=== PATIENT | male | born 1985 | race Hispanic/Latino ===

== ENCOUNTER 2017-08-17 10:49 | Emergency (ER) | payer SELFPAY ==
[2017-08-17] MEDS ORDERED: Acetaminophen 500 MG TAB ONE (12:06)
[2017-08-17 12:31] LABS: #Lymphocytes 0.5 thou/uL (1.20-3.40); #Monocytes 0.7 thou/uL (0.11-0.59); #Neutrophils 5.3 thou/uL (1.40-6.50); %Basophils 0.1 % (0.0-1.0); %Eosinophils 0.6 % (0.0-10.0); %Lymphocytes 7.3 % (21.0-51.0); %Monocytes 11.3 % (0.0-10.0); Hematocrit 48.4 % (42.0-52.0); Mean Platelet Volume 9.8 fL (7.4-10.4); Red Blood Cell (RBC) Count 5.25 mill/uL (4.70-6.10); White Blood Cell (WBC) Count 6.6 thou/uL (4.8-10.8)
--- NOTE | 2017-08-17 12:40 | RAD ---
AP VIEW CHEST: Date: 08/17/17 HISTORY: Cough. FINDINGS: Comparison made to previous exam from 10/05/16. AP view of chest demonstrates the lungs to be well aerated. No evidence of active intrathoracic disea se seen. No evidence of effusions, pneumonia, or pneumothorax seen. IMPRESSION: Unremarkable AP view of chest. POS: [id number]
[2017-08-17 12:52] LABS: Anion Gap 13 mmol/L (10-20); BUN (Urea Nitrogen) 6 mg/dL (8.9-20.6); Calc. Creatinine Clearance 0 mL/min (70-130); Calcium 9.2 mg/dL (7.8-10.44); Carbon Dioxide 23 mmol/L (22-29); Chloride 104 mmol/L (98-107); Estimated GFR-MDRD Greater than 90
== END 2017-08-17 12:54 | disposition home or self-care (01) ==
LOC: ERS 10:49
DX: J11.1 Influenza due to unidentified influenza virus with other respiratory manifestations (principal); F17.210 Nicotine dependence, cigarettes, uncomplicated
CPT/HCPCS: 36415; 71010; 80048; 85025

== ENCOUNTER 2018-10-07 03:15 | Emergency (ER) | payer SELFPAY ==
[2018-10-07] MEDS ORDERED: Ibuprofen 800 MG TAB ONE (04:03)
== END 2018-10-07 04:08 | disposition home or self-care (01) ==
LOC: ERS 03:15
DX: K02.9 Dental caries, unspecified (principal); F17.210 Nicotine dependence, cigarettes, uncomplicated
CPT/HCPCS: 99282

== ENCOUNTER 2018-12-14 18:54 | Emergency (ER) | payer SELFPAY ==
[2018-12-14] MEDS ORDERED: Cyclobenzaprine 10 MG TAB ONE (19:22)
[2018-12-14] MEDS ORDERED: Ketorolac Tromethamine 60 MG/2 ML VIAL ONE (19:22)
== END 2018-12-14 19:51 | disposition home or self-care (01) ==
LOC: SCSER 18:54
DX: M54.6 Pain in thoracic spine (principal); I10 Essential (primary) hypertension; F17.210 Nicotine dependence, cigarettes, uncomplicated
CPT/HCPCS: 96372; J1885

== ENCOUNTER 2021-02-16 11:22 | Emergency (ER) | payer SELFPAY | END 2021-02-16 14:07 | disposition home or self-care (01) | LOC: ERS 11:22 | DX: L03.113 Cellulitis of right upper limb (principal) | CPT/HCPCS: 99283 ==

== ENCOUNTER 2022-09-30 16:16 | Emergency (ER) | payer SELFPAY ==
[2022-09-30] MEDS ORDERED: Ketorolac Tromethamine 30 MG/ML VIAL ONE (19:19)
== END 2022-09-30 19:39 | disposition home or self-care (01) ==
LOC: ERS 16:16
DX: K04.7 Periapical abscess without sinus (principal); F17.210 Nicotine dependence, cigarettes, uncomplicated
CPT/HCPCS: 96372; 99282; J1885

== ENCOUNTER 2022-12-24 01:25 | Emergency (ER) | payer SELFPAY ==
[2022-12-24] MEDS ORDERED: Carbamide Peroxide 6.5% Otic Drops 15 ml Bottle ONE (01:40)
== END 2022-12-24 02:44 | disposition left against medical advice (07) ==
LOC: ERS 01:25
DX: H61.21 Impacted cerumen, right ear (principal); E66.9 Obesity, unspecified; F17.210 Nicotine dependence, cigarettes, uncomplicated
CPT/HCPCS: 69209

== ENCOUNTER 2024-10-05 09:27 | Inpatient (IN) | payer SELFPAY ==
[2024-10-05] MEDS ORDERED: Iopamidol-370 76% 500 ML MDV (1 ML CHARGE) ONE (10:07)
[2024-10-05 10:28] LABS: Bacteria/HPF None Seen HPF (None Seen); Bilirubin 1+ (Negative); Blood, Urine Trace (Negative); CAUTI Indications for Culture Dysuria,urgency,freq; Glucose, Urine (Dipstick) 30 mg/dL (Negative); Ketone, Urine Trace mg/dL (Negative); Leukocyte 25 Leu/uL (Negative); Nitrite Negative (Negative); Protein, Urine (Dipstick) 300 mg/dL (Neg-Trace); Squamous Epithelial 0-3 HPF (0-3); Urobilinogen 3 mg/dL (Less than 2); pH, Urine 6.5 (5.0-9.0)
[2024-10-05 10:34] LABS: #Basophils 0.04 10x3/uL (0.0-0.2); %Basophils 0.4 % (0.0-1.0); %Eosinophils 1.4 % (0.0-10.0); %Lymphocytes 14.5 % (21.0-51.0); %Monocytes 5.7 % (0.0-10.0); %Neutrophils 77.7 % (42.0-75.0); Hematocrit 51.4 % (42.0-52.0); Hemoglobin 16.8 g/dL (14.0-18.0); Mean Corpuscular HGB CONC 32.7 g/dL (32.0-36.0); Mean Corpuscular Hemoglobin 28.3 pg (27.0-31.0); Mean Corpuscular Volume 86.7 fL (78.0-98.0); Mean Platelet Volume 11.3 fL (7.4-10.4); Platelet Count 193 10x3/uL (130-400); RBC Distribution Width 15.2 % (11.5-14.5); Red Blood Cell (RBC) Count 5.93 mill/uL (4.70-6.10)
[2024-10-05 10:37] LABS: Clarity Cloudy (Clear)
[2024-10-05 10:39] LABS: Urine Culture Reflex No No
[2024-10-05 10:51] LABS: ALT (SGPT) 37 U/L (Less than 45); AST (SGOT) 47 U/L (11-34); Alkaline Phosphatase 90 U/L (40-110); Anion Gap 14 mmol/L (10-20); BUN (Urea Nitrogen) 10 mg/dL (8.9-20.6); Bilirubin, Total 0.9 mg/dL (0.3-1.2); Calc. Creatinine Clearance 0 mL/min (70-130); Calcium 9.3 mg/dL (7.8-10.44); Carbon Dioxide 26 mmol/L (22-29); Chloride 104 mmol/L (98-107); Estimated GFR 91; Globulin 4.1 g/dL (2.4-3.5); Glucose 122 mg/dL (70-105); Lipase 24 U/L (8-78); Potassium 3.7 mmol/L (3.5-5.1); Protein, Total 8.1 g/dL (6.0-8.3); Sodium 140 mmol/L (136-145)
[2024-10-05] MEDS ORDERED: Ketorolac Tromethamine 30 MG (1 mL) VIAL ONE ×2 (10:51→12:20)
[2024-10-05 11:33] LABS: Troponin I 2.196 ng/mL (< 0.028)
[2024-10-05] MEDS ORDERED: Aspirin Chewable 81 MG TAB ONE (12:21)
[2024-10-05] MEDS ORDERED: Labetalol HCl 100 MG/20 ML VIAL ONE (12:21)
[2024-10-05] MEDS ORDERED: Enoxaparin 60 MG (0.6 mL) SYRINGE ONE (13:47)
[2024-10-05] MEDS ORDERED: Enoxaparin 100 MG (1 mL) SYRINGE ONE (13:48)
[2024-10-05] MEDS ORDERED: Nicotine 14 MG PATCH TD PRN (15:18)
[2024-10-05] MEDS ORDERED: Cyclobenzaprine 10 MG TAB PO PRN (15:19)
[2024-10-05] MEDS ORDERED: Ondansetron ODT 4 MG TAB PO PRN (15:20)
[2024-10-05] MEDS ORDERED: Electrolyte Replacement Protocol FS SCH (15:20)
[2024-10-05] MEDS ORDERED: Ondansetron PF 4 MG/2 ML Vial IVP PRN (15:20)
[2024-10-05] MEDS ORDERED: Senokot S 8.6-50 MG TAB PO PRN (15:20)
[2024-10-05] MEDS ORDERED: Calcium Carbonate 500 MG ChewTAB PO PRN (15:20)
[2024-10-05] MEDS ORDERED: Nitroglycerin 0.4 MG TAB (25 Tab Bottle) SL PRN (15:25)
[2024-10-05] MEDS ORDERED: Electrolyte Replacement Protocol FS PRN (15:45)
[2024-10-05 15:58] LABS: Critical Call Chem Troponin I RESULT DECREASING; Troponin I 1.979 ng/mL (< 0.028)
[2024-10-05 16:19] LABS: Hemoglobin A1c 5.5 % (4.0-6.0)
[2024-10-05 17:59] VITALS: BMI 49.1
[2024-10-05] MEDS: NIFEdipine XL 30 MG ER.TAB PO SCH (18:23)
[2024-10-05] MEDS: Carvedilol 6.25 MG TAB PO SCH (18:24)
[2024-10-05] MEDS: Acetaminophen 325 MG TAB PO PRN (18:24)
[2024-10-05] MEDS: Lidocaine 4% Patch TD SCH (18:25)
[2024-10-05] MEDS: Magnesium 2 GM/50 ML(in water) 2 GM in Premix 1 BAG IVPB SCH (18:25)
[2024-10-05 18:33] LABS: Troponin I 2.133 ng/mL (< 0.028)
[2024-10-05] MEDS: cloNIDine 0.1 MG TAB PO PRN (21:53)
[2024-10-05] MEDS: Cyclobenzaprine 10 MG TAB PO SCH (21:54)
[2024-10-05] MEDS: Famotidine 20 MG TAB PO SCH (21:55)
[2024-10-05] MEDS ORDERED: hydrALAZINE 20 MG/ML VIAL SLOW IVP PRN (23:21)
[2024-10-05] MEDS: hydrALAZINE 20 MG/ML VIAL SLOW IVP SCH (23:54)
[2024-10-05] MEDS: Ketorolac Tromethamine 30 MG (1 mL) VIAL IVP SCH (23:55)
[2024-10-06 04:05] LABS: #Basophils 0.04 10x3/uL (0.0-0.2); %Basophils 0.5 % (0.0-1.0); %Eosinophils 2.1 % (0.0-10.0); %Lymphocytes 20.5 % (21.0-51.0); %Monocytes 7.2 % (0.0-10.0); %Neutrophils 69.3 % (42.0-75.0); Hematocrit 48.8 % (42.0-52.0); Hemoglobin 15.9 g/dL (14.0-18.0); Mean Corpuscular HGB CONC 32.6 g/dL (32.0-36.0); Mean Corpuscular Hemoglobin 28.6 pg (27.0-31.0); Mean Corpuscular Volume 87.8 fL (78.0-98.0); Mean Platelet Volume 12.3 fL (7.4-10.4); Platelet Count 172 10x3/uL (130-400); RBC Distribution Width 15.3 % (11.5-14.5); Red Blood Cell (RBC) Count 5.56 mill/uL (4.70-6.10)
[2024-10-06 04:44] LABS: Anion Gap 13 mmol/L (10-20); BUN (Urea Nitrogen) 12 mg/dL (8.9-20.6); Calc. Creatinine Clearance 273 mL/min (70-130); Calcium 8.8 mg/dL (7.8-10.44); Carbon Dioxide 27 mmol/L (22-29); Cardiac Risk 4.3 (Less than 4.5); Chloride 104 mmol/L (98-107); Cholesterol 119 mg/dl (< 200 Desired); Estimated GFR 114; Glucose 125 mg/dL (70-105); HDL Cholesterol 28 mg/dL (>60 Neg Risk); LDL Cholesterol, Calculated 72 mg/dL; Potassium 3.3 mmol/L (3.5-5.1); Sodium 141 mmol/L (136-145); Triglycerides 95 mg/dL (Less than 150)
[2024-10-06] MEDS: Labetalol HCl 100 MG/20 ML VIAL SLOW IVP PRN (05:27)
[2024-10-06] MEDS: Morphine 2 MG/ML VIAL SLOW IVP SCH (06:00)
[2024-10-06] MEDS: NIFEdipine XL 60 MG ER.TAB PO SCH (08:27)
[2024-10-06] MEDS: Aspirin 81 mg Enteric Coated Tablet PO SCH (08:27)
[2024-10-06] MEDS: Potassium Chloride 20 MEQ TAB PO SCH (08:28)
[2024-10-06] MEDS ORDERED: Electrolyte Replacement Protocol FS PRN (08:30)
[2024-10-06] MEDS ORDERED: Electrolyte Replacement Protocol 1 EACH FS SCH (08:30)
[2024-10-06] MEDS ORDERED: Aspirin Chewable 81 MG TAB PO SCH (09:00)
[2024-10-06] MEDS ORDERED: NIFEdipine XL 30 MG ER.TAB PO SCH (09:00)
[2024-10-06] MEDS ORDERED: Cyclobenzaprine 10 MG TAB PO PRN (11:42)
[2024-10-06] MEDS: Acetaminophen/Codeine 30-300mg Tablet PO PRN (14:01)
[2024-10-06] MEDS: Lidocaine 4% Patch TD SCH (21:40)
[2024-10-07] MEDS: Morphine 2 MG/ML VIAL SLOW IVP PRN (01:28)
[2024-10-07 04:29] LABS: #Basophils 0.05 10x3/uL (0.0-0.2); %Basophils 0.5 % (0.0-1.0); %Eosinophils 2.2 % (0.0-10.0); %Lymphocytes 15.7 % (21.0-51.0); %Monocytes 6.8 % (0.0-10.0); %Neutrophils 74.5 % (42.0-75.0); Hematocrit 51.4 % (42.0-52.0); Hemoglobin 16.7 g/dL (14.0-18.0); Mean Corpuscular HGB CONC 32.5 g/dL (32.0-36.0); Mean Corpuscular Hemoglobin 28.5 pg (27.0-31.0); Mean Corpuscular Volume 87.9 fL (78.0-98.0); Mean Platelet Volume 12.3 fL (7.4-10.4); Platelet Count 195 10x3/uL (130-400); RBC Distribution Width 15.3 % (11.5-14.5); Red Blood Cell (RBC) Count 5.85 mill/uL (4.70-6.10)
[2024-10-07 04:46] LABS: ALT (SGPT) 42 U/L (Less than 45); AST (SGOT) 43 U/L (11-34); Albumin 3.9 g/dL (3.1-4.5); Alkaline Phosphatase 81 U/L (40-110); Anion Gap 13 mmol/L (10-20); BUN (Urea Nitrogen) 11 mg/dL (8.9-20.6); Calc. Creatinine Clearance 247 mL/min (70-130); Calcium 9.1 mg/dL (7.8-10.44); Carbon Dioxide 29 mmol/L (22-29); Chloride 103 mmol/L (98-107); Estimated GFR 106; Globulin 3.7 g/dL (2.4-3.5); Glucose 96 mg/dL (70-105); Magnesium 2.1 mg/dL (1.6-2.6); Potassium 3.9 mmol/L (3.5-5.1); Protein, Total 7.6 g/dL (6.0-8.3); Sodium 141 mmol/L (136-145)
[2024-10-07] MEDS ORDERED: FLU (Fluarix Triv) TS24-25(6MOS UP)/PF 45 MCG/0.5 ML Syringe IM ONE (09:00)
[2024-10-07] MEDS ORDERED: Metoprolol Succinate XL 25 MG ER.TAB PO SCH (09:00)
[2024-10-07] MEDS: Lisinopril 10 MG TAB PO SCH (10:13)
[2024-10-07 11:16] VITALS: BP 141/79; TEMP 98.6
== END 2024-10-07 13:20 | disposition home or self-care (01) | DRG 305 ==
LOC: ERS 09:27 → 2NO 14:50
PROVIDERS: ADMIT Internal Medicine; ATTEND Internal Medicine
DX: I16.0 Hypertensive urgency (principal); Z68.42 Body mass index [BMI] 45.0-49.9, adult; K82.8 Other specified diseases of gallbladder; E66.9 Obesity, unspecified; R39.15 Urgency of urination; F17.210 Nicotine dependence, cigarettes, uncomplicated; R31.9 Hematuria, unspecified; I11.9 Hypertensive heart disease without heart failure; M54.50 Low back pain, unspecified; E87.6 Hypokalemia; E83.42 Hypomagnesemia; Z91.148 Patient's other noncompliance with medication regimen for other reason; Z79.899 Other long term (current) drug therapy; Z79.82 Long term (current) use of aspirin
CPT/HCPCS: 36415; 71275; 74174; 74176; 80048; 80053; 80061; 81001; 83036; 83690; 83735; 84484; 85025; 93005; 93306; 96372; 96374; J0360; J1650; J1885; J2272; J3475; Q9967

== ENCOUNTER 2025-06-29 08:17 | Emergency (ER) | payer SELFPAY ==
[2025-06-29] MEDS ORDERED: HYDROcodone/Acetaminophen 10/325 mg Tablet ONE (08:42)
[2025-06-29 09:09] LABS: Bacteria/HPF None Seen HPF (None Seen); CAUTI Indications for Culture Pelvic or flank pain; Glucose, Urine (Dipstick) Normal (Negative); Leukocyte 25 Leu/uL (Negative); Protein, Urine (Dipstick) Negative (Neg-Trace); RBC/HPF 0-3 HPF (0-3); Specific Gravity, Urine 1.018 (1.002-1.036); WBC/HPF 0-3 HPF (0-3)
[2025-06-29 09:12] LABS: Urine Culture Reflex No No
== END 2025-06-29 09:28 | disposition home or self-care (01) ==
LOC: ERS 08:17
DX: M62.830 Muscle spasm of back (principal); I10 Essential (primary) hypertension
CPT/HCPCS: 81001; 96372; 99283; J1100